=== PATIENT | female | born 1990 | race Hispanic/Latino ===

== ENCOUNTER 2023-12-26 09:33 | Outpatient (CLI) | payer BC | END 2023-12-26 09:34 | disposition home or self-care (01) | LOC: CSHLAB 09:33 | PROVIDERS: ATTEND Family Medicine | DX: Z01.812 Encounter for preprocedural laboratory examination (principal); O02.1 Missed abortion | CPT/HCPCS: 86780; 86900; 86901; 87389 ==

== ENCOUNTER → 2023-12-27 | Day surgery (SDC) | payer BC ==
[2023-12-26 10:26] VITALS: BMI 28.5
[2023-12-26 11:46] LABS: HIV (1/2) Antibody/Antigen Non-Reactive (NonReactive); HIV 1/2 INDEX 0.09 S/CO (<1.00)
[2023-12-26 11:47] LABS: Syphilis Antibody Nonreactive (Nonreactive); Syphilis Antibody Index 0.05 S/CO (<1.00 Non-Reactive)
[~2023-12-27] MED LIST: Dexamethasone 4 mg/ml Vial ONE; Doxycycline 100 MG CAP PO SCH; HYDROcodone/Acetaminophen 5/325 mg Tablet ONE; Lactated Ringer's 1,000 ML IV SCH; Methylergonovine 0.2 MG/ML VIAL ONE; Midazolam HCl 2 mg/2 ml Vial ONE; Misoprostol 200 MCG TAB ONE; Misoprostol 200 MCG TAB PR SCH; Ondansetron PF 4 MG/2 ML Vial ONE; PROPOFOL 20 ML ONE; Tranexamic Acid 1,000 MG/10 ML VIAL ONE; fentaNYL 50 mcg/mL 1 mL Vial ONE; metroNIDAZOLE 500 MG (100 mL) BAG ONE; metroNIDAZOLE 500 MG in Premix 1 BAG IVPB SCH
[2023-12-27 12:03] LABS: Hematocrit 37.8 % (34.9-44.5); Mean Corpuscular HGB CONC 34.4 g/dL (32.0-36.0); Mean Corpuscular Hemoglobin 31.9 pg (27.0-33.0); Mean Corpuscular Volume 92.6 fL (81.6-98.3); Mean Platelet Volume 10.5 fL (7.4-10.4); Platelet Count 226 10x3/uL (150-450); RBC Distribution Width 12.8 % (11.5-14.5); Red Blood Cell (RBC) Count 4.08 10x6/uL (3.90-5.03); White Blood Cell (WBC) Count 7.3 10x3/uL (3.5-10.5)
== END ==
LOC: CSHSDC 09:08
PROVIDERS: ATTEND Family Medicine
PROC: 10D17ZZ Extraction of Products of Conception, Retained, Via Natural or Artificial Opening (ICD-10-PCS; principal; 2023-12-27)
DX: O02.1 Missed abortion (principal)
CPT/HCPCS: 36415; 85027; 86780; 86850; 86900; 86901; 87389; 88305; J1100; J2210; J2250; J2405; J2704; J3010